=== PATIENT | male | born 1965 | race Caucasian/White ===

== ENCOUNTER 2016-09-19 17:19 | Inpatient (IN) | payer OTHER ==
[2016-09-19 17:26] VITALS: BMI 29.2
--- NOTE | 2016-09-19 17:39 | HP ---
COWS - Scale Resting Pulse: 0= [place] 80 or Below Sweatin=Flushed/Facial Moisture Restless Observation: 1= Difficult to Sit Still Pupil Size: 2= Moderately Dilated Bone or Joint Aches: 2= Severe Diffuse Aches Runny Nose/ Eye Tearin= Runny Nose/Eyes GI Upset > 30mins: 2= Nausea/Diarrhea Tremor Observation: 2= Slight Tremor Visible Yawning Observation: 1= 1-2x During Session Anxiety or Irritability: 2=Irritable/Anxious Goose Flesh Skin: 3=Piloerection COWS Score: 19 CIWA Score - CIWA Score Nausea/Vomitin-Mild Nausea/No Vomiting Muscle Tremors: 4-Moderate,w/Arms Extend Anxiety: 4-Mod. Anxious/Guarded Agitation: 4-Moderately Restless Paroxysmal Sweats: 3 Orientation: 0-Oriented Tacttile Disturbances: 1-Very Mild Itch/Numbness Auditory Disturbances: 0-None Visual Disturbances: 0-None Headache: 0-None Present CIWA-Ar Total Score: 17 Admission ROS S - HPI Chief Complaint: Withdrawal sx. Allergies/Adverse Reactions: Allergies Allergy/AdvReac Type Severity Reaction Status Date / Time No Known Allergies Allergy Verified 09/19/16 17:32 History of Present Illness: 51 y/o man with a long hx. of heroin,alcohol & xanax dependence is admitted for detox. pt. has been in previous detox,he claims almost 10yrs sobriety from 1985 to 1995. Exam Limitations: No Limitations - Ebola screening Have you traveled outside of the country in the last 21 days: No Have you had contact with anyone from an Ebola affected area: No Have you been sick,other than usual withdrawal symptoms: No Do you have a fever: No - Review of Systems Constitutional: Diaphoresis EENT: reports: Nose Congestion Respiratory: reports: No Symptoms reported Cardiac: reports: No Symptoms Reported GI: reports: Diarrhea, Nausea : reports: No Symptoms Reported Musculoskeletal: reports: Joint Pain, Muscle Pain Integumentary: reports: Sweating Neuro: reports: Tingling, Tremors Endocrine: reports: No Symptoms Reported Hematology: reports: No Symptoms Reported Psychiatric: reports: No Sypmtoms Reported Other Systems: Reviewed and Negative Patient History - Patient Medical History Hx Anemia: No Hx Asthma: No Hx Chronic Obstructive Pulmonary Disease (COPD): No Hx Cancer: No Hx Cardiac Disorders: No Hx Congestive Heart Failure: No Hx Hypertension: No Hx Hypercholesterolemia: No Hx Pacemaker: No HX Cerebrovascular Accident: No Hx Seizures: No Hx Dementia: No Hx Diabetes: No Hx Gastrointestinal Disorders: No Hx Liver Disease: Yes Hx Genitourinary Disorders: No Hx Sexually Transmitted Disorders: No Hx Renal Disease (ESRD): No Hx Thyroid Disease: No Hx Human Immunodeficiency Virus (HIV): No Hx Hepatitis C: Yes (needs treatment) Hx Depression: No Hx Suicide Attempt: No Hx Bipolar Disorder: No Hx Schizophrenia: No - Patient Surgical History Past Surgical History: No - PPD History Previous Implant?: Yes Documented Results: Negative w/o proof Implanted On Prior [facility] Admission?: No PPD to be Administered?: Yes - Smoking Cessation Smoking history: Current every day smoker Aproximately how many cigarettes per day: 20 Hx Chewing Tobacco Use: No Initiated information on smoking cessation: Yes 'Breaking Loose' booklet given: 09/19/16 - Substance & Tx. History Hx Alcohol Use: Yes Hx Substance Use: Yes Substance Use Type: Alcohol, Heroin, Tranquilizers Hx Substance Use Treatment: Yes (detox) - Substances Abused Alcohol Route: Oral Frequency: Daily Amount used: Beer 2(6pack) Age of first use: 13 Date of Last Use: 09/19/16 Alprazolam (Xanax) Route: Oral Frequency: Daily Amount used: 4mg Age of first use: 40 Date of Last Use: 09/18/16 Heroin Route: Injection Frequency: Daily Amount used: 10 bags Age of first use: 31 Date of Last Use: 09/19/16 Family Disease History - Family Disease History Family History: Unable to Obtain (pt. was mostly in foster homes) Admission Physical Exam S - Vital Signs Vital Signs: Vital Signs - 24 hr 09/19/16 17:21 Temperature 97.1 F L Pulse Rate 60 Respiratory 18 Rate Blood Pressure 122/71 - Physical General Appearance: Yes: Tremorous, Irritable, Sweating, Anxious HEENTM: Yes: Nasal Congestion, Rhinorrhea Respiratory: Yes: Chest Non-Tender, Lungs Clear, Normal Breath Sounds Neck: Yes: Supple Breast: Yes: Breast Exam Deferred Cardiology: Yes: Regular Rhythm, Regular Rate, S1, S2 Abdominal: Yes: Normal Bowel Sounds, Non Tender, Soft Genitourinary: Yes: Within Normal Limits Back: Yes: Within Normal Limits Musculoskeletal: Yes: Within Normal Limits Extremities: Yes: Tremors Neurological: Yes: Fully Oriented, Alert Integumentary: Yes: Diaphoresis Lymphatic: Yes: Within Normal Limits - Diagnostic (1) Alcohol dependence with uncomplicated withdrawal Current Visit: Yes Status: Acute (2) Opioid dependence with withdrawal Current Visit: Yes Status: Acute (3) Sedative, hypnotic or anxiolytic dependence with withdrawal, uncomplicated Current Visit: Yes Status: Acute Cleared for Admission [facility] - Detox or Rehab [facility] Level of Care: Medically Managed Detox Regimen/Protocol: Methadone/Librium [facility] Breath Alcohol Content Breath Alcohol Content: 0 Urine Drug Screen - Results Drug Screen Negative: No Urine Drug Screen Results: KIMMY-Cocaine, OPI-Opiates
[2016-09-19] MEDS ORDERED: guaiFENesin/D-METHORPHAN HB 10 ML UNIT-DOSE CUPS PO PRN (17:54)
[2016-09-19] MEDS ORDERED: chlordiazePOXIDE HCL 25 MG CAPSULE PO PRN (17:54)
[2016-09-19] MEDS ORDERED: P-EPHED 60MG/TRIPROLIDI 2.5MG TABLET PO PRN (17:54)
[2016-09-19] MEDS ORDERED: IBUPROFEN 400 MG TABLET (FP) PO PRN (17:54)
[2016-09-19] MEDS ORDERED: chlordiazePOXIDE HCL 25 MG CAPSULE PO ONE (17:54)
[2016-09-19] MEDS ORDERED: MENTHOL/PHENOL 1 EACH UD MM PRN (17:54)
[2016-09-19] MEDS ORDERED: LOPERAMIDE HCL 2 MG CAPSULE PO PRN (17:54)
[2016-09-19] MEDS ORDERED: MAGNESIUM CITRATE 300 ML BOTTLE PO PRN (17:54)
[2016-09-19] MEDS ORDERED: hydrOXYzine PAMOATE 50 MG CAPSULE (FP) PO PRN (17:54)
[2016-09-19] MEDS ORDERED: METHADONE HCL 10 MG TABLET (FOR DETOX USE ONLY) PO ONE ×2 (17:54→23:00)
[2016-09-19] MEDS ORDERED: MAGNESIUM HYDROX 2400MG/30ML ORAL SUSPENSION 30 ML CUP PO PRN (17:54)
[2016-09-19] MEDS ORDERED: NICOTINE POLACRILEX 2 MG GUM BC PRN (17:54)
[2016-09-19] MEDS ORDERED: MAG HYDROX/AL HYDROX/SIMETH 30 ML UNIT-DOSE CUP PO PRN (17:54)
[2016-09-19] MEDS: NICOTINE 21 MG/24 HOURS TOPICAL PATCH TD SCH (19:37)
[2016-09-19] MEDS: chlordiazePOXIDE HCL 25 MG CAPSULE PO SCH (23:03)
[2016-09-19] MEDS: THIAMINE HCL 100 MG TABLET (FP) PO SCH (23:03)
[2016-09-20] MEDS: chlordiazePOXIDE HCL 25 MG CAPSULE PO SCH ×4 (05:44→22:55)
[2016-09-20] MEDS ORDERED: METHADONE HCL 10 MG TABLET (FOR DETOX USE ONLY) PO SCH (10:00)
[2016-09-20] MEDS: PRENATAL VITAMINS W/ FOLIC ACID TABLET (FP) PO SCH (10:19)
[2016-09-20] MEDS: NICOTINE 21 MG/24 HOURS TOPICAL PATCH TD SCH (10:19)
[2016-09-20 11:22] LABS: ALBUMIN 3.1 g/dl (3.4-5.0); ANION GAP 5 (8-16); CALCIUM 8.2 mg/dL (8.5-10.1); CO2 32 mmol/L (21-32); GLUCOSE,RANDOM 103 mg/dL (74-106)
--- NOTE | 2016-09-20 11:26 | PN ---
[facility] CIWA - CIWA Score Nausea/Vomitin Muscle Tremors: 3 Anxiety: 3 Agitation: 2 Paroxysmal Sweats: 1-Minimal Palms Moist Orientation: 0-Oriented Tacttile Disturbances: 1-Very Mild Itch/Numbness Auditory Disturbances: 1-Very Mild Visual Disturbances: 1-Very Mild Sensitivity Headache: 2-Mild CIWA-Ar Total Score: 17 [facility] COWS - Scale Resting Pulse: 0= [place] 80 or Below Sweatin= Chills/Flushing Restless Observation: 3= Extraneous Movement Pupil Size: 1= Pupils >than Normal Bone or Joint Aches: 2= Severe Diffuse Aches Runny Nose/ Eye Tearin= Runny Nose/Eyes GI Upset > 30mins: 3= Vomiting/Diarrhea Tremor Observation of Outstretched Hands: 2= Slight Tremor Visible Yawning Observation: 1= 1-2x During Session Anxiety or Irritability: 2=Irritable/Anxious Goose Flesh Skin: 0=Smooth Skin COWS Score: 17 [facility] Progress Note (SOAP) Subjective: ALERT,IRRITABLE,ANXIOUS,INTERRUPTED SLEEP,TREMOR,PAIN IN THE BODY AND BACK Objective: 09/20/16 11:23 Vital Signs Temperature 97.9 F 09/20/16 10:00 Pulse Rate 48 L 09/20/16 10:00 Respiratory Rate 18 09/20/16 10:00 Blood Pressure 132/73 09/20/16 10:00 O2 Sat by Pulse Oximetry (%) EKG SINUS BARDYCARDIA 60/MIN NO CHEST PAIN,NO SOB,NO DIZZINESS LABS PENDING Assessment: 09/20/16 11:26 WITHDRAWAL SYMPTOM Plan: CONTINUE DETOX
[2016-09-20 11:28] LABS: ALK PHOS 58 U/L (45-117); BILIRUBIN,TOTAL 0.5 mg/dL (0.2-1.0); CREATININE 0.8 mg/dL (0.7-1.3); SGOT/AST 30 U/L (15-37); SGPT/ALT 26 U/L (12-78); TOT PROT 6.2 g/dl (6.4-8.2)
[2016-09-20 11:35] LABS: URINE APPEARANCE CLEAR; URINE BILIRUBIN NEGATIVE (NEGATIVE); URINE BLOOD NEGATIVE (NEGATIVE); URINE COLOR DKYELLOW; URINE GLUCOSE (UA) NEGATIVE (NEGATIVE); URINE KETONE NEGATIVE (NEGATIVE); URINE LEUK ESTERASE NEGATIVE (NEGATIVE); URINE NITRITE NEGATIVE (NEGATIVE); URINE PROTEIN NEGATIVE (NEGATIVE); URINE UROBILINOGEN 4.0 E.U/dl E.U./dl (0.2-1.0)
[2016-09-20 11:40] LABS: MCH 30.2 pg (25.7-33.7); MCHC 33.6 g/dl (32.0-35.9); MEAN CELL VOLUME 89.7 fl (80-96); MEAN PLT VOLUME 8.3 fl (7.5-11.1); PLATELET COUNT 159 K/MM3 (134-434); RDW 13.3 % (11.9-15.9); WHITE BLOOD COUNT 5.3 K/mm3 (4.0-10.0)
--- NOTE | 2016-09-20 12:32 | EKG ---
Test Reason : Blood Pressure : / mmHG Vent. Rate : 055 BPM Atrial Rate : 055 BPM P-R Int : 128 ms QRS Dur : 098 ms QT Int : 438 ms P-R-T Axes : 073 073 -13 degrees QTc Int : 419 ms SINUS BRADYCARDIA ABNORMAL ECG NO PREVIOUS ECGS AVAILABLE Confirmed by DESIREE JIMENEZ MD ([id number]) on 09/20/2016 12:32:29 PM Referred By: Confirmed By:DESIREE JIMENEZ MD
[2016-09-20] MEDS: THIAMINE HCL 100 MG TABLET (FP) PO SCH (22:54)
[2016-09-21] MEDS: chlordiazePOXIDE HCL 25 MG CAPSULE PO SCH ×3 (05:41→17:29)
[2016-09-21] MEDS: NICOTINE 21 MG/24 HOURS TOPICAL PATCH TD SCH (10:09)
[2016-09-21] MEDS: PRENATAL VITAMINS W/ FOLIC ACID TABLET (FP) PO SCH (10:10)
[2016-09-21] MEDS: METHADONE HCL 5 MG TABLET (FOR DETOX USE ONLY) PO SCH (10:10)
--- NOTE | 2016-09-21 10:22 | PN ---
[facility] CIWA - CIWA Score Nausea/Vomitin Muscle Tremors: 3 Anxiety: 3 Agitation: 3 Paroxysmal Sweats: 3 Orientation: 0-Oriented Tacttile Disturbances: 2-Mild Itch/Numbness/Burn Auditory Disturbances: 0-None Visual Disturbances: 0-None Headache: 0-None Present CIWA-Ar Total Score: 16 [facility] COWS - Scale Resting Pulse: 0= [place] 80 or Below Sweatin= Chills/Flushing Restless Observation: 1= Difficult to Sit Still Pupil Size: 1= Pupils >than Normal Bone or Joint Aches: 1= Mild Discomfort Runny Nose/ Eye Tearin= Nasal Congestion GI Upset > 30mins: 1= Stomach Cramp Tremor Observation of Outstretched Hands: 1= Tremor [place], Not Seen Yawning Observation: 1= 1-2x During Session Anxiety or Irritability: 2=Irritable/Anxious Goose Flesh Skin: 0=Smooth Skin COWS Score: 10 S Progress Note (SOAP) Subjective: INTERRUPTED SLEEP, SWEATS, SHAKES Objective: 09/21/16 10:22 Vital Signs Temperature 97.9 F 09/21/16 09:49 Pulse Rate 48 L 09/21/16 09:49 Respiratory Rate 16 09/21/16 09:49 Blood Pressure 115/75 09/21/16 09:49 O2 Sat by Pulse Oximetry (%) Laboratory Tests 09/20/16 09/20/16 09/20/16 08:00 08:00 08:00 WBC 5.3 RBC 4.34 Hgb 13.1 Hct 38.9 MCV 89.7 MCHC 33.6 RDW 13.3 Plt Count 159 MPV 8.3 Sodium 139 Potassium 3.9 Chloride 102 Carbon Dioxide 32 Anion Gap 5 L BUN 18 Creatinine 0.8 Creat Clearance w eGFR > 60 Random Glucose 103 Calcium 8.2 L Total Bilirubin 0.5 AST 30 ALT 26 Alkaline Phosphatase 58 Total Protein 6.2 L Albumin 3.1 L Urine Color Urine Appearance Urine pH Ur Specific [place] Urine Protein Urine Glucose (UA) Urine Ketones Urine Blood Urine Nitrite Urine Bilirubin Urine Urobilinogen Ur Leukocyte Esterase RPR Titer Nonreactive 09/20/16 08:00 WBC RBC Hgb Hct MCV MCHC RDW Plt Count MPV Sodium Potassium Chloride Carbon Dioxide Anion Gap BUN Creatinine Creat Clearance w eGFR Random Glucose Calcium Total Bilirubin AST ALT Alkaline Phosphatase Total Protein Albumin Urine Color Dkyellow Urine Appearance Clear Urine pH 6.0 Ur Specific [place] 1.031 Urine Protein Negative Urine Glucose (UA) Negative Urine Ketones Negative Urine Blood Negative Urine Nitrite Negative Urine Bilirubin Negative Urine Urobilinogen 4.0 e.u/dl Ur Leukocyte Esterase Negative RPR Titer 09/21/16 11:39 PT AOX3 IN NAD LYING IN BED Assessment: 09/21/16 10:22 WITHDRAWAL SX'S 09/21/16 11:40 Plan: CONT. DETOX INCREASE FLUIDS
[2016-09-21] MEDS: THIAMINE HCL 100 MG TABLET (FP) PO SCH (22:55)
[2016-09-21] MEDS: chlordiazePOXIDE 5 MG CAPSULE PO SCH (23:02)
[2016-09-21] MEDS: diphenhydrAMINE HCL 50 MG CAPSULE PO PRN (23:03)
[2016-09-22] MEDS: chlordiazePOXIDE 5 MG CAPSULE PO SCH ×3 (05:20→17:36)
[2016-09-22] MEDS: METHADONE HCL 5 MG TABLET (FOR DETOX USE ONLY) PO SCH (11:27)
[2016-09-22] MEDS: PRENATAL VITAMINS W/ FOLIC ACID TABLET (FP) PO SCH (11:27)
[2016-09-22] MEDS: NICOTINE 21 MG/24 HOURS TOPICAL PATCH TD SCH (11:27)
--- NOTE | 2016-09-22 11:52 | PN ---
[facility] Progress Note (SOAP) Subjective: anxiety sweats shakes interrupted sleep Objective: 09/22/16 11:51 Vital Signs Temperature 97.3 F L 09/22/16 10:13 Pulse Rate 52 L 09/22/16 10:13 Respiratory Rate 18 09/22/16 10:13 Blood Pressure 122/69 09/22/16 10:13 O2 Sat by Pulse Oximetry (%) Laboratory Tests 09/20/16 09/20/16 09/20/16 08:00 08:00 08:00 WBC 5.3 RBC 4.34 Hgb 13.1 Hct 38.9 MCV 89.7 MCHC 33.6 RDW 13.3 Plt Count 159 MPV 8.3 Sodium 139 Potassium 3.9 Chloride 102 Carbon Dioxide 32 Anion Gap 5 L BUN 18 Creatinine 0.8 Creat Clearance w eGFR > 60 Random Glucose 103 Calcium 8.2 L Total Bilirubin 0.5 AST 30 ALT 26 Alkaline Phosphatase 58 Total Protein 6.2 L Albumin 3.1 L Urine Color Urine Appearance Urine pH Ur Specific [place] Urine Protein Urine Glucose (UA) Urine Ketones Urine Blood Urine Nitrite Urine Bilirubin Urine Urobilinogen Ur Leukocyte Esterase RPR Titer Nonreactive 09/20/16 08:00 WBC RBC Hgb Hct MCV MCHC RDW Plt Count MPV Sodium Potassium Chloride Carbon Dioxide Anion Gap BUN Creatinine Creat Clearance w eGFR Random Glucose Calcium Total Bilirubin AST ALT Alkaline Phosphatase Total Protein Albumin Urine Color Dkyellow Urine Appearance Clear Urine pH 6.0 Ur Specific [place] 1.031 Urine Protein Negative Urine Glucose (UA) Negative Urine Ketones Negative Urine Blood Negative Urine Nitrite Negative Urine Bilirubin Negative Urine Urobilinogen 4.0 e.u/dl Ur Leukocyte Esterase Negative RPR Titer awake/alert ambulating no acute distress Assessment: 09/22/16 11:52 withdrawal sx Plan: continue detox increase fluids
[2016-09-22] MEDS ORDERED: AMMONIUM LACTATE 12% LOTION 225 GM BOTTLE TP PRN (13:19)
[2016-09-22] MEDS: BACITRACIN 0.9 GM PACKET TP SCH ×2 (14:50→22:55)
[2016-09-22] MEDS: THIAMINE HCL 100 MG TABLET (FP) PO SCH (22:55)
[2016-09-22] MEDS: chlordiazePOXIDE HCL 10 MG CAPSULE PO SCH (23:57)
[2016-09-23] MEDS: chlordiazePOXIDE HCL 10 MG CAPSULE PO SCH ×3 (06:12→17:53)
[2016-09-23] MEDS ORDERED: METHADONE HCL 10 MG TABLET (FOR DETOX USE ONLY) PO SCH (10:00)
[2016-09-23] MEDS: BACITRACIN 0.9 GM PACKET TP SCH ×2 (10:34→22:57)
[2016-09-23] MEDS: PRENATAL VITAMINS W/ FOLIC ACID TABLET (FP) PO SCH (10:34)
[2016-09-23] MEDS: NICOTINE 21 MG/24 HOURS TOPICAL PATCH TD SCH (10:35)
[2016-09-23] MEDS ORDERED: IBUPROFEN 400 MG TABLET (FP) PO PRN (12:11)
--- NOTE | 2016-09-23 12:14 | PN ---
[facility] Progress Note (SOAP) Subjective: interrupted sleep, feet hurt Objective: 09/23/16 12:12 Vital Signs Temperature 97.9 F 09/23/16 10:07 Pulse Rate 59 L 09/23/16 10:07 Respiratory Rate 18 09/23/16 10:07 Blood Pressure 124/79 09/23/16 10:07 O2 Sat by Pulse Oximetry (%) Laboratory Tests 09/20/16 09/20/16 09/20/16 08:00 08:00 08:00 WBC 5.3 RBC 4.34 Hgb 13.1 Hct 38.9 MCV 89.7 MCHC 33.6 RDW 13.3 Plt Count 159 MPV 8.3 Sodium 139 Potassium 3.9 Chloride 102 Carbon Dioxide 32 Anion Gap 5 L BUN 18 Creatinine 0.8 Creat Clearance w eGFR > 60 Random Glucose 103 Calcium 8.2 L Total Bilirubin 0.5 AST 30 ALT 26 Alkaline Phosphatase 58 Total Protein 6.2 L Albumin 3.1 L Urine Color Urine Appearance Urine pH Ur Specific [place] Urine Protein Urine Glucose (UA) Urine Ketones Urine Blood Urine Nitrite Urine Bilirubin Urine Urobilinogen Ur Leukocyte Esterase RPR Titer Nonreactive 09/20/16 08:00 WBC RBC Hgb Hct MCV MCHC RDW Plt Count MPV Sodium Potassium Chloride Carbon Dioxide Anion Gap BUN Creatinine Creat Clearance w eGFR Random Glucose Calcium Total Bilirubin AST ALT Alkaline Phosphatase Total Protein Albumin Urine Color Dkyellow Urine Appearance Clear Urine pH 6.0 Ur Specific [place] 1.031 Urine Protein Negative Urine Glucose (UA) Negative Urine Ketones Negative Urine Blood Negative Urine Nitrite Negative Urine Bilirubin Negative Urine Urobilinogen 4.0 e.u/dl Ur Leukocyte Esterase Negative RPR Titer pt aox3 in nad ambulating feet , fissures Assessment: 09/23/16 12:13 withdrawal sx's foot pains Plan: cont. detox increase fluids bacitracin oint motrin 800mg tid may use own shoes d/c in am
[2016-09-23] MEDS: ACETAMINOPHEN 325 MG TABLET (FP) PO PRN ×2 (18:39→22:58)
[2016-09-23] MEDS: THIAMINE HCL 100 MG TABLET (FP) PO SCH (22:55)
[2016-09-23] MEDS: diphenhydrAMINE HCL 50 MG CAPSULE PO PRN (22:57)
[2016-09-24] MEDS ORDERED: METHADONE HCL 5 MG TABLET (FOR DETOX USE ONLY) PO SCH (06:00)
[2016-09-24 07:09] VITALS: BP 102/63; PULSE 54; TEMP 98.1
--- NOTE | 2016-09-24 09:02 | DS ---
[facility] Detox Discharge Summary Admission Date: 09/19/16 Discharge Date: 09/24/16 - History Present History: Alcohol Dependence, Opioid Dependence, Sedative Dependence - Physical Exam Results Vital Signs: Vital Signs Temperature 98.1 F 09/24/16 07:08 Pulse Rate 54 L 09/24/16 07:08 Respiratory Rate 16 09/24/16 07:08 Blood Pressure 102/63 09/24/16 07:08 O2 Sat by Pulse Oximetry (%) - Treatment Hospital Course: Detox Protocol Followed, Detoxed Safely, Responded well, Discharged Condition Good - Medication Discharge Medications: Ambulatory Orders NK [No Known Home Medication] 09/19/16 - Diagnosis (1) Alcohol dependence with uncomplicated withdrawal Current Visit: Yes Status: Chronic (2) Opioid dependence with withdrawal Current Visit: Yes Status: Chronic (3) Sedative, hypnotic or anxiolytic dependence with withdrawal, uncomplicated Current Visit: Yes Status: Chronic - AMA Did Patient Leave Against Medical Advice: No
== END 2016-09-24 09:05 | disposition home or self-care (01) | DRG 773 ==
LOC: YASAS 17:19 → Y6N 18:29
PROVIDERS: ADMIT Internal Medicine; ATTEND Internal Medicine Addiction Medicine
PROC: HZ2ZZZZ Detoxification Services for Substance Abuse Treatment (ICD-10-PCS; principal; 2016-09-24)
DX: F11.23 Opioid dependence with withdrawal (principal); F13.230 Sedative, hypnotic or anxiolytic dependence with withdrawal, uncomplicated; F10.230 Alcohol dependence with withdrawal, uncomplicated
CPT/HCPCS: 36415; 71010-TC; 80053; 81003; 85027; 86593; 93005; 93010

== ENCOUNTER 2016-11-10 14:33 | Inpatient (IN) | payer OTHER ==
[2016-11-10 15:48] VITALS: BMI 30.9
--- NOTE | 2016-11-10 16:36 | HP ---
COWS - Scale Resting Pulse: 0= [place] 80 or Below Sweatin= Chills/Flushing Restless Observation: 1= Difficult to Sit Still Pupil Size: 1= Pupils >than Normal Bone or Joint Aches: 2= Severe Diffuse Aches Runny Nose/ Eye Tearin= Nasal Congestion GI Upset > 30mins: 1= Stomach Cramp Tremor Observation: 1= Tremor [place], Not Seen Yawning Observation: 0= None Anxiety or Irritability: 2=Irritable/Anxious Goose Flesh Skin: 0=Smooth Skin COWS Score: 10 CIWA Score - CIWA Score Nausea/Vomitin Muscle Tremors: 2 Anxiety: 2 Agitation: 2 Paroxysmal Sweats: 4-Forehead w/Sweat Beads Orientation: 0-Oriented Tacttile Disturbances: 2-Mild Itch/Numbness/Burn Auditory Disturbances: 0-None Visual Disturbances: 0-None Headache: 0-None Present CIWA-Ar Total Score: 15 Admission ROS [facility] - HPI Chief Complaint: I need to stop using drugs ,I need help. Allergies/Adverse Reactions: Allergies Allergy/AdvReac Type Severity Reaction Status Date / Time No Known Allergies Allergy Verified 11/10/16 16:24 History of Present Illness: 51 y/o m pt with a h/o heroin dep, xanax dep and st methadone seeking detox. Exam Limitations: No Limitations - Ebola screening Have you traveled outside of the country in the last 21 days: No Have you had contact with anyone from an Ebola affected area: No Have you been sick,other than usual withdrawal symptoms: No Do you have a fever: No - Review of Systems Constitutional: Malaise, Night Sweats, Changes in sleep EENT: reports: Blurred Vision, Dental Problems Respiratory: reports: No Symptoms reported Cardiac: reports: No Symptoms Reported GI: reports: Nausea, Abdominal cramping : reports: Frequency Musculoskeletal: reports: Muscle Pain Integumentary: reports: No Symptoms Reported Neuro: reports: No Symptoms reported Endocrine: reports: No Symptoms Reported Hematology: reports: No Symptoms Reported Psychiatric: reports: No Sypmtoms Reported Other Systems: Reviewed and Negative Patient History - Patient Medical History Hx Anemia: No Hx Asthma: No Hx Chronic Obstructive Pulmonary Disease (COPD): No Hx Cancer: No Hx Cardiac Disorders: No Hx Congestive Heart Failure: No Hx Hypertension: No Hx Hypercholesterolemia: No Hx Pacemaker: No HX Cerebrovascular Accident: No Hx Seizures: No Hx Dementia: No Hx Diabetes: No Hx Gastrointestinal Disorders: No Hx Liver Disease: Yes Hx Genitourinary Disorders: No Hx Sexually Transmitted Disorders: No Hx Renal Disease (ESRD): No Hx Thyroid Disease: No Hx Human Immunodeficiency Virus (HIV): No Hx Hepatitis C: Yes (needs treatment) Hx Depression: No Hx Suicide Attempt: No Hx Bipolar Disorder: No Hx Schizophrenia: No - Patient Surgical History Past Surgical History: Yes Hx Neurologic Surgery: No Hx Cataract Extraction: No Hx Cardiac Surgery: No Hx Lung Surgery: No Hx Breast Surgery: No Hx Breast Biopsy: No Hx Abdominal Surgery: No Hx Appendectomy: No Hx Cholecystectomy: No Hx Genitourinary Surgery: No Hx Section: No Hx Orthopedic Surgery: No Other Surgical History: Bilateral inguinal hernia repairs at age 5 yrs old. Anesthesia Reaction: No - PPD History Previous Implant?: Yes Documented Results: Positive w/proof Implanted On Prior [facility] Admission?: Yes Date: 09/21/16 Results: 9 mm - Reproductive History Patient is a Female of Child Bearing Age (11 -55 yrs old): No - Smoking Cessation Smoking history: Current every day smoker Have you smoked in the past 12 months: Yes Aproximately how many cigarettes per day: 20 Hx Chewing Tobacco Use: No Initiated information on smoking cessation: Yes 'Breaking Loose' booklet given: 11/10/16 - Substance & Tx. History Hx Alcohol Use: No Hx Substance Use: Yes Substance Use Type: Heroin, Tranquilizers Hx Substance Use Treatment: Yes - Substances Abused Heroin Route: Injection Frequency: Daily Amount used: 10 BAGS Age of first use: 25 Date of Last Use: 11/10/16 Alprazolam (Xanax) Route: Oral Frequency: Daily Amount used: 2-4mg Age of first use: 25 Date of Last Use: 11/09/16 Family Disease History - Family Disease History Family History: Unable to Obtain Admission Physical Exam [facility] - Vital Signs Vital Signs: Vital Signs - 24 hr 11/10/16 15:46 Temperature 95.7 F L Pulse Rate 57 L Respiratory 18 Rate Blood Pressure 126/71 51 y/o m pt aox3 wn/wn i nad cooperative with exam. - Physical General Appearance: Yes: Appropriately Dressed, Sweating, Anxious HEENTM: Yes: EOMI, Hearing grossly Normal, Normal Voice, CRISTOFER Respiratory: Yes: Chest Non-Tender, Lungs Clear, Normal Breath Sounds, No Respiratory Distress Neck: Yes: Supple Breast: Yes: Within Normal Limits Cardiology: Yes: Regular Rhythm, Regular Rate, S1, S2 Abdominal: Yes: Non Tender, Flat, Soft, Increased Bowel Sounds Genitourinary: Yes: Frequency Back: Yes: Decreased Range of Motion Extremities: Yes: Tremors Neurological: Yes: barrel rifler II-XII NML intact, Fully Oriented, Alert, Motor Strength 5/5, Normal Response Integumentary: Yes: Moist, Track Bowling (luz forearms) Lymphatic: Yes: Within Normal Limits - Diagnostic (1) Opioid dependence with withdrawal Current Visit: Yes Status: Chronic (2) Sedative, hypnotic or anxiolytic dependence with withdrawal, uncomplicated Current Visit: Yes Status: Chronic (3) Nicotine dependence Current Visit: Yes Status: Chronic Qualifiers: Nicotine product type: cigarettes Substance use status: uncomplicated Qualified Code(s): F17.210 - Nicotine dependence, cigarettes, uncomplicated Cleared for Admission [facility] - Detox or Rehab [facility] Level of Care: Medically Managed Detox Regimen/Protocol: Methadone/Valium [facility] Breath Alcohol Content Breath Alcohol Content: 0 Urine Drug Screen - Results Drug Screen Negative: No Urine Drug Screen Results: OPI-Opiates, BZO-Benzodiazepines, MTD-Methadone
[2016-11-10] MEDS ORDERED: hydrOXYzine PAMOATE 25 MG CAPSULE (FP) PO PRN (16:56)
[2016-11-10] MEDS ORDERED: MAG HYDROX/AL HYDROX/SIMETH 30 ML UNIT-DOSE CUP PO PRN (16:56)
[2016-11-10] MEDS ORDERED: guaiFENesin/D-METHORPHAN HB 10 ML UNIT-DOSE CUPS PO PRN (16:56)
[2016-11-10] MEDS ORDERED: MAGNESIUM CITRATE 300 ML BOTTLE PO PRN (16:56)
[2016-11-10] MEDS ORDERED: NICOTINE POLACRILEX 4 MG GUM BC PRN (16:56)
[2016-11-10] MEDS ORDERED: MAGNESIUM HYDROX 2400MG/30ML ORAL SUSPENSION 30 ML CUP PO PRN (16:56)
[2016-11-10] MEDS ORDERED: IBUPROFEN 400 MG TABLET (FP) PO PRN (16:56)
[2016-11-10] MEDS ORDERED: MENTHOL/PHENOL 1 EACH UD MM PRN (16:56)
[2016-11-10] MEDS ORDERED: LOPERAMIDE HCL 2 MG CAPSULE PO PRN (16:56)
[2016-11-10] MEDS ORDERED: ACETAMINOPHEN 325 MG TABLET (FP) PO PRN (16:56)
[2016-11-10] MEDS ORDERED: P-EPHED 60MG/TRIPROLIDI 2.5MG TABLET PO PRN (16:56)
[2016-11-10] MEDS ORDERED: METHADONE HCL 10 MG TABLET (FOR DETOX USE ONLY) PO ONE ×2 (17:45→23:00)
[2016-11-10] MEDS ORDERED: diazePAM 5 MG TABLET PO ONE (17:45)
[2016-11-10] MEDS: diazePAM 5 MG TABLET PO SCH (22:03)
[2016-11-10] MEDS: THIAMINE HCL 100 MG TABLET (FP) PO SCH (22:03)
[2016-11-10] MEDS: BACITRACIN 0.9 GM PACKET TP SCH (22:03)
[2016-11-10] MEDS: diphenhydrAMINE HCL 50 MG CAPSULE PO PRN (22:04)
[2016-11-11] MEDS: diazePAM 5 MG TABLET PO SCH ×3 (05:40→22:01)
[2016-11-11] MEDS ORDERED: METHADONE HCL 10 MG TABLET (FOR DETOX USE ONLY) PO SCH (10:00)
[2016-11-11] MEDS: PRENATAL VITAMINS W/ FOLIC ACID TABLET (FP) PO SCH (10:06)
[2016-11-11] MEDS: NICOTINE 21 MG/24 HOURS TOPICAL PATCH TD SCH (10:06)
[2016-11-11] MEDS: BACITRACIN 0.9 GM PACKET TP SCH ×2 (10:06→22:01)
[2016-11-11] MEDS: diazePAM 5 MG TABLET PO PRN ×2 (10:06→17:43)
--- NOTE | 2016-11-11 10:22 | PN ---
[facility] CIWA - CIWA Score Nausea/Vomitin-No Nausea/No Vomiting Muscle Tremors: 4-Moderate,w/Arms Extend Anxiety: 4-Mod. Anxious/Guarded Agitation: 4-Moderately Restless Paroxysmal Sweats: 1-Minimal Palms Moist Orientation: 0-Oriented Tacttile Disturbances: 3-Moderate Itch/Numb/Burn Auditory Disturbances: 0-None Visual Disturbances: 0-None Headache: 0-None Present CIWA-Ar Total Score: 16 [facility] COWS - Scale Resting Pulse: 0= [place] 80 or Below Sweatin= Chills/Flushing Restless Observation: 3= Extraneous Movement Pupil Size: 2= Moderately Dilated Bone or Joint Aches: 4=Acute Joint/Muscle Pain Runny Nose/ Eye Tearin= Nasal Congestion GI Upset > 30mins: 1= Stomach Cramp Tremor Observation of Outstretched Hands: 1= Tremor [place], Not Seen Yawning Observation: 1= 1-2x During Session Anxiety or Irritability: 1=Feels Anxious/Irritable Goose Flesh Skin: 0=Smooth Skin COWS Score: 15 [facility] Progress Note (SOAP) Subjective: ANXIETY,TREMORS,SWEATS,DIARRHEA,INTERMITTENT SLEEP. Objective: 11/11/16 10:22 Vital Signs Temperature 97.8 F 11/11/16 09:24 Pulse Rate 65 11/11/16 09:24 Respiratory Rate 18 11/11/16 09:24 Blood Pressure 116/78 11/11/16 09:24 O2 Sat by Pulse Oximetry (%) LAB RESULTS PENDING Assessment: 11/11/16 10:22 WITHDRAWAL SX Plan: CONTINUE DETOX
[2016-11-11 10:28] LABS: MCH 30.6 pg (25.7-33.7); MCHC 34.6 g/dl (32.0-35.9); MEAN CELL VOLUME 88.6 fl (80-96); MEAN PLT VOLUME 7.9 fl (7.5-11.1); PLATELET COUNT 179 K/MM3 (134-434)
[2016-11-11 10:44] LABS: ALBUMIN 3.4 g/dl (3.4-5.0); ALK PHOS 65 U/L (45-117); ANION GAP 11 (8-16); BILIRUBIN,TOTAL 0.4 mg/dL (0.2-1.0); CALCIUM 8.5 mg/dL (8.5-10.1); CO2 29 mmol/L (21-32); CREATININE 0.9 mg/dL (0.7-1.3); GLUCOSE,RANDOM 145 mg/dL (74-106); SGOT/AST 29 U/L (15-37); SGPT/ALT 32 U/L (12-78); TOT PROT 6.7 g/dl (6.4-8.2)
--- NOTE | 2016-11-11 11:02 | EKG ---
Test Reason : Blood Pressure : / mmHG Vent. Rate : 053 BPM Atrial Rate : 053 BPM P-R Int : 144 ms QRS Dur : 100 ms QT Int : 436 ms P-R-T Axes : 049 064 049 degrees QTc Int : 409 ms SINUS BRADYCARDIA OTHERWISE NORMAL ECG WHEN COMPARED WITH ECG OF 19-SEP-2016 18:55, ST NO LONGER DEPRESSED IN INFERIOR LEADS T WAVE INVERSION NO LONGER EVIDENT IN INFERIOR LEADS Confirmed by MARYANNE GENTILE, HODA ([id number]) on 11/11/2016 11:02:08 AM Referred By: Joshua Thao Confirmed By:HODA MADDEN MD
[2016-11-11 12:01] LABS: HIV 1 & 2 AB NEGATIVE; HIV 1 AGp24 NEGATIVE
[2016-11-11 16:26] LABS: URINE APPEARANCE CLEAR; URINE BILIRUBIN NEGATIVE (NEGATIVE); URINE BLOOD NEGATIVE (NEGATIVE); URINE COLOR YELLOW; URINE GLUCOSE (UA) NEGATIVE (NEGATIVE); URINE KETONE NEGATIVE (NEGATIVE); URINE LEUK ESTERASE NEGATIVE (NEGATIVE); URINE NITRITE NEGATIVE (NEGATIVE); URINE PROTEIN NEGATIVE (NEGATIVE); URINE UROBILINOGEN NEGATIVE E.U./dl (0.2-1.0)
[2016-11-11] MEDS: THIAMINE HCL 100 MG TABLET (FP) PO SCH (22:01)
[2016-11-11] MEDS: diphenhydrAMINE HCL 50 MG CAPSULE PO PRN (22:01)
[2016-11-12] MEDS: diazePAM 5 MG TABLET PO PRN ×4 (01:30→17:48)
--- NOTE | 2016-11-12 09:48 | PN ---
[facility] CIWA - CIWA Score Nausea/Vomitin-No Nausea/No Vomiting Muscle Tremors: 4-Moderate,w/Arms Extend Anxiety: 4-Mod. Anxious/Guarded Agitation: 4-Moderately Restless Paroxysmal Sweats: 1-Minimal Palms Moist Orientation: 0-Oriented Tacttile Disturbances: 3-Moderate Itch/Numb/Burn Auditory Disturbances: 0-None Visual Disturbances: 0-None Headache: 0-None Present CIWA-Ar Total Score: 16 S COWS - Scale Resting Pulse: 0= [place] 80 or Below Sweatin= Chills/Flushing Restless Observation: 3= Extraneous Movement Pupil Size: 0= Normal to Room Light Bone or Joint Aches: 4=Acute Joint/Muscle Pain Runny Nose/ Eye Tearin= Nasal Congestion GI Upset > 30mins: 1= Stomach Cramp Tremor Observation of Outstretched Hands: 1= Tremor Bee, Not Seen Yawning Observation: 2= >3x During Session Anxiety or Irritability: 2=Irritable/Anxious Goose Flesh Skin: 0=Smooth Skin COWS Score: 15 [facility] Progress Note (SOAP) Subjective: ANXIETY,SWEATS,INTERMITTENT SLEEP Objective: 11/12/16 09:48 Vital Signs Temperature 97.0 F L 11/12/16 09:30 Pulse Rate 78 11/12/16 09:30 Respiratory Rate 18 11/12/16 09:30 Blood Pressure 127/78 11/12/16 09:30 O2 Sat by Pulse Oximetry (%) Laboratory Last Values WBC 7.0 K/mm3 (4.0-10.0) D 11/11/16 07:30 RBC 4.55 M/mm3 (4.00-5.60) 11/11/16 07:30 Hgb 13.9 GM/dL (11.7-16.9) 11/11/16 07:30 Hct 40.3 % (35.4-49) 11/11/16 07:30 MCV 88.6 fl (80-96) 11/11/16 07:30 MCHC 34.6 g/dl (32.0-35.9) 11/11/16 07:30 RDW 14.0 % (11.9-15.9) 11/11/16 07:30 Plt Count 179 K/MM3 (134-434) 11/11/16 07:30 MPV 7.9 fl (7.5-11.1) 11/11/16 07:30 Sodium 138 mmol/L (136-145) 11/11/16 07:30 Potassium 3.9 mmol/L (3.5-5.1) 11/11/16 07:30 Chloride 98 mmol/L (98-107) 11/11/16 07:30 Carbon Dioxide 29 mmol/L (21-32) 11/11/16 07:30 Anion Gap 11 (8-16) 11/11/16 07:30 BUN 17 mg/dL (7-18) 11/11/16 07:30 Creatinine 0.9 mg/dL (0.7-1.3) 11/11/16 07:30 Creat Clearance w eGFR > 60 (>60) 11/11/16 07:30 Random Glucose 145 mg/dL (74-106) H D 11/11/16 07:30 Calcium 8.5 mg/dL (8.5-10.1) 11/11/16 07:30 Total Bilirubin 0.4 mg/dL (0.2-1.0) 11/11/16 07:30 AST 29 U/L (15-37) 11/11/16 07:30 ALT 32 U/L (12-78) D 11/11/16 07:30 Alkaline Phosphatase 65 U/L (45-117) 11/11/16 07:30 Total Protein 6.7 g/dl (6.4-8.2) 11/11/16 07:30 Albumin 3.4 g/dl (3.4-5.0) 11/11/16 07:30 Urine Color Yellow 11/11/16 13:40 Urine Appearance Clear 11/11/16 13:40 Urine pH 5.0 (5.0-8.0) 11/11/16 13:40 Ur Specific [place] 1.020 (1.001-1.035) 11/11/16 13:40 Urine Protein Negative (NEGATIVE) 11/11/16 13:40 Urine Glucose (UA) Negative (NEGATIVE) 11/11/16 13:40 Urine Ketones Negative (NEGATIVE) 11/11/16 13:40 Urine Blood Negative (NEGATIVE) 11/11/16 13:40 Urine Nitrite Negative (NEGATIVE) 11/11/16 13:40 Urine Bilirubin Negative (NEGATIVE) 11/11/16 13:40 Urine Urobilinogen Negative E.U./dl (0.2-1.0) 11/11/16 13:40 Ur Leukocyte Esterase Negative (NEGATIVE) 11/11/16 13:40 RPR Titer Nonreactive (NONREACTIVE) 11/11/16 07:30 HIV 1&2 Antibody Screen Negative 11/11/16 07:30 HIV P24 Antigen Negative 11/11/16 07:30 Assessment: 11/12/16 09:48 WITHDRAWAL SX Plan: CONTINUE DETOX
[2016-11-12] MEDS: PRENATAL VITAMINS W/ FOLIC ACID TABLET (FP) PO SCH (10:01)
[2016-11-12] MEDS: BACITRACIN 0.9 GM PACKET TP SCH ×2 (10:01→22:06)
[2016-11-12] MEDS: METHADONE HCL 5 MG TABLET (FOR DETOX USE ONLY) PO SCH (10:01)
[2016-11-12] MEDS: diazePAM 5 MG TABLET PO SCH ×2 (10:01→22:07)
[2016-11-12] MEDS: NICOTINE 21 MG/24 HOURS TOPICAL PATCH TD SCH (10:02)
[2016-11-12] MEDS: THIAMINE HCL 100 MG TABLET (FP) PO SCH (22:07)
[2016-11-12] MEDS: diphenhydrAMINE HCL 50 MG CAPSULE PO PRN (22:07)
[2016-11-13] MEDS: diazePAM 5 MG TABLET PO PRN ×2 (05:41→14:14)
[2016-11-13] MEDS: METHADONE HCL 5 MG TABLET (FOR DETOX USE ONLY) PO SCH (10:09)
[2016-11-13] MEDS: PRENATAL VITAMINS W/ FOLIC ACID TABLET (FP) PO SCH (10:09)
[2016-11-13] MEDS: BACITRACIN 0.9 GM PACKET TP SCH ×2 (10:09→22:04)
[2016-11-13] MEDS: NICOTINE 21 MG/24 HOURS TOPICAL PATCH TD SCH (10:09)
[2016-11-13] MEDS: diazePAM 5 MG TABLET PO SCH ×2 (10:09→22:04)
--- NOTE | 2016-11-13 12:51 | PN ---
[facility] Progress Note (SOAP) Subjective: Anxiety,tremors,sweating,interrupted sleep,restless Objective: 11/13/16 12:48 Vital Signs - 8 hr 11/13/16 11/13/16 06:35 10:37 Temperature 96.9 F L 97.3 F L Pulse Rate 54 L 63 Respiratory 18 18 Rate Blood Pressure 113/75 124/83 Laboratory Tests 11/11/16 11/11/16 11/11/16 07:30 07:30 07:30 WBC 7.0 D RBC 4.55 Hgb 13.9 Hct 40.3 MCV 88.6 MCHC 34.6 RDW 14.0 Plt Count 179 MPV 7.9 Sodium 138 Potassium 3.9 Chloride 98 Carbon Dioxide 29 Anion Gap 11 BUN 17 Creatinine 0.9 Creat Clearance w eGFR > 60 Random Glucose 145 H D Calcium 8.5 Total Bilirubin 0.4 AST 29 ALT 32 D Alkaline Phosphatase 65 Total Protein 6.7 Albumin 3.4 Urine Color Urine Appearance Urine pH Ur Specific [place] Urine Protein Urine Glucose (UA) Urine Ketones Urine Blood Urine Nitrite Urine Bilirubin Urine Urobilinogen Ur Leukocyte Esterase RPR Titer HIV 1&2 Antibody Screen Negative HIV P24 Antigen Negative 11/11/16 11/11/16 07:30 13:40 WBC RBC Hgb Hct MCV MCHC RDW Plt Count MPV Sodium Potassium Chloride Carbon Dioxide Anion Gap BUN Creatinine Creat Clearance w eGFR Random Glucose Calcium Total Bilirubin AST ALT Alkaline Phosphatase Total Protein Albumin Urine Color Yellow Urine Appearance Clear Urine pH 5.0 Ur Specific [place] 1.020 Urine Protein Negative Urine Glucose (UA) Negative Urine Ketones Negative Urine Blood Negative Urine Nitrite Negative Urine Bilirubin Negative Urine Urobilinogen Negative Ur Leukocyte Esterase Negative RPR Titer Nonreactive HIV 1&2 Antibody Screen HIV P24 Antigen labs noted Assessment: 11/13/16 12:48 Withdrawal sx. Plan: Continue detox
[2016-11-13] MEDS: THIAMINE HCL 100 MG TABLET (FP) PO SCH (22:04)
[2016-11-13] MEDS: diphenhydrAMINE HCL 50 MG CAPSULE PO PRN (22:04)
[2016-11-14] MEDS ORDERED: METHADONE HCL 10 MG TABLET (FOR DETOX USE ONLY) PO SCH (10:00)
[2016-11-14] MEDS ORDERED: diazePAM 5 MG TABLET PO SCH (10:00)
[2016-11-14 11:03] VITALS: BP 128/87; PULSE 65; TEMP 98.6
--- NOTE | 2016-11-14 17:21 | DS ---
[facility] Detox Discharge Summary Admission Date: 11/10/16 Discharge Date: 11/14/16 - History Present History: Opioid Dependence, Sedative Dependence Additional Comments: ADVISED PATIENT TO FOLLOW-UP WITH [facility] FOR GENERAL MEDICAL ASSESSMENT AND FOR ABNORMAL ADMISSION LAB VALUES. Pertinent Past History: Hep C. - Physical Exam Results Vital Signs: Vital Signs Temperature 98.6 F 11/14/16 11:01 Pulse Rate 65 11/14/16 11:01 Respiratory Rate 18 11/14/16 11:01 Blood Pressure 128/87 11/14/16 11:01 O2 Sat by Pulse Oximetry (%) Pertinent Admission Physical Exam Findings: WITHDRAWAL SYMPTOMS. Laboratory Last Values WBC 7.0 K/mm3 (4.0-10.0) D 11/11/16 07:30 RBC 4.55 M/mm3 (4.00-5.60) 11/11/16 07:30 Hgb 13.9 GM/dL (11.7-16.9) 11/11/16 07:30 Hct 40.3 % (35.4-49) 11/11/16 07:30 MCV 88.6 fl (80-96) 11/11/16 07:30 MCHC 34.6 g/dl (32.0-35.9) 11/11/16 07:30 RDW 14.0 % (11.9-15.9) 11/11/16 07:30 Plt Count 179 K/MM3 (134-434) 11/11/16 07:30 MPV 7.9 fl (7.5-11.1) 11/11/16 07:30 Sodium 138 mmol/L (136-145) 11/11/16 07:30 Potassium 3.9 mmol/L (3.5-5.1) 11/11/16 07:30 Chloride 98 mmol/L (98-107) 11/11/16 07:30 Carbon Dioxide 29 mmol/L (21-32) 11/11/16 07:30 Anion Gap 11 (8-16) 11/11/16 07:30 BUN 17 mg/dL (7-18) 11/11/16 07:30 Creatinine 0.9 mg/dL (0.7-1.3) 11/11/16 07:30 Creat Clearance w eGFR > 60 (>60) 11/11/16 07:30 Random Glucose 145 mg/dL (74-106) H D 11/11/16 07:30 Calcium 8.5 mg/dL (8.5-10.1) 11/11/16 07:30 Total Bilirubin 0.4 mg/dL (0.2-1.0) 11/11/16 07:30 AST 29 U/L (15-37) 11/11/16 07:30 ALT 32 U/L (12-78) D 11/11/16 07:30 Alkaline Phosphatase 65 U/L (45-117) 11/11/16 07:30 Total Protein 6.7 g/dl (6.4-8.2) 11/11/16 07:30 Albumin 3.4 g/dl (3.4-5.0) 11/11/16 07:30 Urine Color Yellow 11/11/16 13:40 Urine Appearance Clear 11/11/16 13:40 Urine pH 5.0 (5.0-8.0) 11/11/16 13:40 Ur Specific [place] 1.020 (1.001-1.035) 11/11/16 13:40 Urine Protein Negative (NEGATIVE) 11/11/16 13:40 Urine Glucose (UA) Negative (NEGATIVE) 11/11/16 13:40 Urine Ketones Negative (NEGATIVE) 11/11/16 13:40 Urine Blood Negative (NEGATIVE) 11/11/16 13:40 Urine Nitrite Negative (NEGATIVE) 11/11/16 13:40 Urine Bilirubin Negative (NEGATIVE) 11/11/16 13:40 Urine Urobilinogen Negative E.U./dl (0.2-1.0) 11/11/16 13:40 Ur Leukocyte Esterase Negative (NEGATIVE) 11/11/16 13:40 RPR Titer Nonreactive (NONREACTIVE) 11/11/16 07:30 HIV 1&2 Antibody Screen Negative 11/11/16 07:30 HIV P24 Antigen Negative 11/11/16 07:30 LABS NOTED. - Treatment Hospital Course: Detoxed Safely - Medication Discharge Medications: Ambulatory Orders NK [No Known Home Medication] 09/19/16 - Diagnosis (1) Nicotine dependence Status: Chronic Qualifiers: Nicotine product type: cigarettes Substance use status: uncomplicated Qualified Code(s): F17.210 - Nicotine dependence, cigarettes, uncomplicated (2) Opioid dependence with withdrawal Status: Acute (3) Sedative, hypnotic or anxiolytic dependence with withdrawal, uncomplicated Status: Acute - AMA Did Patient Leave Against Medical Advice: Yes (PATIENT DID NOT WANT TO REMIAIN ON UNIT TO COMPLETE DETOX REGIMEN.)
[2016-11-15] MEDS ORDERED: METHADONE HCL 5 MG TABLET (FOR DETOX USE ONLY) PO SCH (06:00)
== END 2016-11-14 09:16 | disposition left against medical advice (07) | DRG 770 ==
LOC: YASAS 14:33 → Y3N 17:16
PROVIDERS: ADMIT Internal Medicine; ATTEND Internal Medicine
PROC: HZ2ZZZZ Detoxification Services for Substance Abuse Treatment (ICD-10-PCS; principal; 2016-11-14)
DX: F11.23 Opioid dependence with withdrawal (principal); F13.230 Sedative, hypnotic or anxiolytic dependence with withdrawal, uncomplicated; F17.210 Nicotine dependence, cigarettes, uncomplicated; B18.2 Chronic viral hepatitis C
CPT/HCPCS: 36415; 80053; 81003; 85027; 86593; 87389; 93005; 93010

== ENCOUNTER 2016-12-23 08:38 | Inpatient (IN) | payer OTHER ==
[2016-12-23 10:29] VITALS: BMI 28.5
--- NOTE | 2016-12-23 12:10 | HP ---
COWS - Scale Resting Pulse: 0= [place] 80 or Below Sweatin=Flushed/Facial Moisture Restless Observation: 1= Difficult to Sit Still Pupil Size: 0= Normal to Room Light Bone or Joint Aches: 2= Severe Diffuse Aches Runny Nose/ Eye Tearin= Runny Nose/Eyes GI Upset > 30mins: 2= Nausea/Diarrhea Tremor Observation: 2= Slight Tremor Visible Yawning Observation: 2= >3x During Session Anxiety or Irritability: 2=Irritable/Anxious Goose Flesh Skin: 0=Smooth Skin COWS Score: 15 CIWA Score - CIWA Score Nausea/Vomitin-Mild Nausea/No Vomiting Muscle Tremors: 4-Moderate,w/Arms Extend Anxiety: 3 Agitation: 4-Moderately Restless Paroxysmal Sweats: 3 Orientation: 0-Oriented Tacttile Disturbances: 0-None Auditory Disturbances: 0-None Visual Disturbances: 0-None Headache: 0-None Present CIWA-Ar Total Score: 15 Admission ROS S - HPI Chief Complaint: I am here for detox. Allergies/Adverse Reactions: Allergies Allergy/AdvReac Type Severity Reaction Status Date / Time No Known Allergies Allergy Verified 12/23/16 10:44 History of Present Illness: pt is a 51yr old male with a history of alcohol, heroin, xanax dependence seeking detox for treatment. last detox was at [facility] a little over a month ago. Exam Limitations: No Limitations - Ebola screening Have you traveled outside of the country in the last 21 days: No Have you had contact with anyone from an Ebola affected area: No Have you been sick,other than usual withdrawal symptoms: No - Review of Systems Constitutional: Chills, Diaphoresis, Loss of Appetite, Night Sweats, Changes in sleep EENT: reports: Tearing, Nose Congestion Respiratory: reports: No Symptoms reported Cardiac: reports: No Symptoms Reported GI: reports: Diarrhea, Poor Appetite, Poor Fluid Intake : reports: No Symptoms Reported Musculoskeletal: reports: Back Pain Integumentary: reports: Flushing, Sweating Neuro: reports: Tingling, Tremors Endocrine: reports: Excessive Sweating, Flushing, Intolerance to Cold, Intolerance to Heat Hematology: reports: No Symptoms Reported Psychiatric: reports: Judgement Intact, Mood/Affect Appropiate, Orientated x3, Agitated, Anxious Other Systems: Reviewed and Negative Patient History - Patient Medical History Hx Anemia: No Hx Asthma: No Hx Chronic Obstructive Pulmonary Disease (COPD): No Hx Cancer: No Hx Cardiac Disorders: No Hx Congestive Heart Failure: No Hx Hypertension: No Hx Hypercholesterolemia: No Hx Pacemaker: No HX Cerebrovascular Accident: No Hx Seizures: No Hx Dementia: No Hx Diabetes: No Hx Gastrointestinal Disorders: No Hx Liver Disease: Yes Hx Genitourinary Disorders: No Hx Sexually Transmitted Disorders: No Hx Renal Disease (ESRD): No Hx Thyroid Disease: No Hx Human Immunodeficiency Virus (HIV): No (negative) Hx Hepatitis C: Yes (needs treatment) Hx Depression: No Hx Suicide Attempt: No (denies) Hx Bipolar Disorder: No Hx Schizophrenia: No - Patient Surgical History Past Surgical History: Yes Hx Neurologic Surgery: No Hx Cataract Extraction: No Hx Cardiac Surgery: No Hx Lung Surgery: No Hx Breast Surgery: No Hx Breast Biopsy: No Hx Abdominal Surgery: No Hx Appendectomy: No Hx Cholecystectomy: No Hx Genitourinary Surgery: No Hx Section: No Hx Orthopedic Surgery: No Other Surgical History: Bilateral inguinal hernia repairs at age 5 yrs old. Anesthesia Reaction: No - PPD History Previous Implant?: Yes Documented Results: Positive w/proof Implanted On Prior [facility] Admission?: Yes Date: 09/21/16 Results: 0 mm PPD to be Administered?: No - Reproductive History Patient is a Female of Child Bearing Age (11 -55 yrs old): No - Smoking Cessation Smoking history: Current every day smoker Have you smoked in the past 12 months: Yes Aproximately how many cigarettes per day: 20 Hx Chewing Tobacco Use: No Initiated information on smoking cessation: Yes 'Breaking Loose' booklet given: 12/23/16 - Substance & Tx. History Hx Alcohol Use: Yes Hx Substance Use: Yes Substance Use Type: Alcohol, Cocaine, Heroin, Tranquilizers Hx Substance Use Treatment: Yes (last detox [facility] 09/2016) - Substances Abused Heroin Route: Injection Frequency: Daily Amount used: 10 bags Age of first use: 30 Date of Last Use: 12/22/16 Alcohol Route: Oral Frequency: Daily Amount used: 3-4 12 oz beers Age of first use: 16 Date of Last Use: 12/22/16 Alprazolam (Xanax) Route: Oral Frequency: Daily Amount used: 2-4mg Age of first use: 30 Date of Last Use: 12/22/16 Cocaine Route: Injection Frequency: Daily Amount used: $10 Age of first use: 16 Date of Last Use: 12/22/16 Family Disease History - Family Disease History Family History: Denies Admission Physical Exam [facility] - Vital Signs Vital Signs: Vital Signs - 24 hr 12/23/16 10:16 Temperature 96.9 F L Pulse Rate 60 Respiratory 18 Rate Blood Pressure 130/82 - Physical General Appearance: Yes: Appropriately Dressed, Moderate Distress, Tremorous, Irritable, Sweating, Anxious HEENTM: Yes: Normal Voice, Nasal Congestion Respiratory: Yes: Lungs Clear, Normal Breath Sounds, No Respiratory Distress Neck: Yes: No masses,lesions,Nodules Breast: Yes: Within Normal Limits Cardiology: Yes: Regular Rhythm, Regular Rate, S1, S2 Abdominal: Yes: Normal Bowel Sounds Genitourinary: Yes: Within Normal Limits Back: Yes: Normal Inspection Musculoskeletal: Yes: Gait Steady, Back pain Extremities: Yes: Normal Inspection, Non-Tender, Tremors Neurological: Yes: Fully Oriented, Alert, Normal Response Integumentary: Yes: Normal Color, Diaphoresis, Track Bowling Lymphatic: Yes: Within Normal Limits - Diagnostic (1) Opioid dependence with withdrawal Current Visit: Yes Status: Chronic (2) Sedative, hypnotic or anxiolytic dependence with withdrawal, uncomplicated Current Visit: Yes Status: Chronic (3) Alcohol dependence with uncomplicated withdrawal Current Visit: Yes Status: Chronic (4) Nicotine dependence Current Visit: Yes Status: Chronic Qualifiers: Nicotine product type: cigarettes Substance use status: uncomplicated Qualified Code(s): F17.210 - Nicotine dependence, cigarettes, uncomplicated Cleared for Admission [facility] - Detox or Rehab [facility] Level of Care: Medically Managed Detox Regimen/Protocol: Methadone/Valium [facility] Breath Alcohol Content Breath Alcohol Content: 0 Urine Drug Screen - Results Drug Screen Negative: No Urine Drug Screen Results: KIMMY-Cocaine, OPI-Opiates, BZO-Benzodiazepines, MTD- Methadone
[2016-12-23] MEDS ORDERED: LOPERAMIDE HCL 2 MG CAPSULE PO PRN (12:17)
[2016-12-23] MEDS ORDERED: ACETAMINOPHEN 325 MG TABLET (FP) PO PRN (12:17)
[2016-12-23] MEDS ORDERED: P-EPHED 60MG/TRIPROLIDI 2.5MG TABLET PO PRN (12:17)
[2016-12-23] MEDS ORDERED: MENTHOL/PHENOL 1 EACH UD MM PRN (12:17)
[2016-12-23] MEDS ORDERED: MAGNESIUM HYDROX 2400MG/30ML ORAL SUSPENSION 30 ML CUP PO PRN (12:17)
[2016-12-23] MEDS ORDERED: guaiFENesin/D-METHORPHAN HB 10 ML UNIT-DOSE CUPS PO PRN (12:17)
[2016-12-23] MEDS ORDERED: MAG HYDROX/AL HYDROX/SIMETH 30 ML UNIT-DOSE CUP PO PRN (12:17)
[2016-12-23] MEDS ORDERED: diphenhydrAMINE HCL 50 MG CAPSULE PO PRN (12:17)
[2016-12-23] MEDS ORDERED: hydrOXYzine PAMOATE 50 MG CAPSULE (FP) PO PRN (12:17)
[2016-12-23] MEDS ORDERED: IBUPROFEN 400 MG TABLET (FP) PO PRN (12:17)
[2016-12-23] MEDS ORDERED: MAGNESIUM CITRATE 300 ML BOTTLE PO PRN (12:17)
[2016-12-23] MEDS ORDERED: diazePAM 5 MG TABLET PO ONE (12:22)
[2016-12-23] MEDS ORDERED: METHADONE HCL 10 MG TABLET (FOR DETOX USE ONLY) PO ONE ×2 (12:23→23:00)
--- NOTE | 2016-12-23 14:08 | CONSULT ---
[facility] Psychiatric Consult - Data Date of interview: 12/23/16 Admission source: [facility] Identifying data: Readmission to [facility] for this 51 y/o male seeking detox treatment for alcohol,xanax and heroin dependence.Patient is ,a father of one,homeles,unemployed and deprived of any means of support. Substance Abuse History: - Smoking Cessation. Smoking history: Current every day smoker. Have you smoked in the past 12 months: Yes. Aproximately how many cigarettes per day: 20. Hx Chewing Tobacco Use: No. Initiated information on smoking cessation: Yes. 'Breaking Loose' booklet given: 12/23/16. - Substance & Tx. History. Hx Alcohol Use: Yes. Hx Substance Use: Yes. Substance Use Type : Alcohol, Cocaine, Heroin, Tranquilizers. Hx Substance Use Treatment: Yes ( last detox [facility] 09/2016). - Substances Abused. Heroin. Route: Injection. Frequency: Daily. Amount used: 10 bags. Age of first use: 30. Date of Last Use: 12/22/16. Alcohol. Route: Oral. Frequency: Daily. Amount used: 3-4 12 oz beers. Age of first use: 16. Date of Last Use: . Alprazolam (Xanax). Route: Oral. Frequency: Daily. Amount used: 2- 4mg. Age of first use: 30. Date of Last Use: 12/22/16. Cocaine. Route: Injection. Frequency: Daily. Amount used: $10. Age of first use: 16. Date of Last Use: 12/22/16. Confirmed by patient. Medical History: Patient denies. Psychiatric History: Patient denies. Physical/Sexual Abuse/Trauma History: Patient denies. Additional Comment: Urine Drug Screen Results: KIMMY-Cocaine, OPI-Opiates, BZO- Benzodiazepines, MTD-Methadone.Noted. Mental Status Exam - Mental Status Exam Alert and Oriented to: Time, Place, Person Cognitive Function: Good Patient Appearance: Well Groomed Mood: Nervous, Anxious Affect: Mood Congruent Patient Behavior: Fatigued, Appropriate, Cooperative Speech Pattern: Clear Voice Loudness: Normal Thought Process: Goal Oriented Thought Disorder: Not Present Hallucinations: Denies Suicidal Ideation: Denies Homicidal Ideation: Denies Insight/Judgement: Poor Sleep: Poorly, Difficulty falling asleep Appetite: Good Muscle strength/Tone: Normal Gait/Station: Normal Psychiatric Findings - Problem List ([place] 1, 2,3) (1) Alcohol dependence with uncomplicated withdrawal Current Visit: Yes Status: Acute (2) Opioid dependence with withdrawal Current Visit: Yes Status: Acute (3) Sedative, hypnotic or anxiolytic dependence with withdrawal, uncomplicated Current Visit: Yes Status: Acute (4) Nicotine dependence Current Visit: Yes Status: Acute Qualifiers: Nicotine product type: cigarettes Substance use status: uncomplicated Qualified Code(s): F17.210 - Nicotine dependence, cigarettes, uncomplicated (5) Insomnia Current Visit: Yes Status: Acute - Initial Treatment Plan Initial Treatment Plan: Psychoeducation.Detoxification in progress.Ambien 10 mg po hs.Patient is made aware of risk of parasomnias.He agrees with careplan.Observation.
[2016-12-23 14:48] LABS: HIV 1 & 2 AB NEGATIVE; HIV 1 AGp24 NEGATIVE
[2016-12-23] MEDS: diazePAM 5 MG TABLET PO SCH ×2 (15:16→22:20)
[2016-12-23 17:44] LABS: URINE APPEARANCE CLEAR; URINE BILIRUBIN NEGATIVE (NEGATIVE); URINE BLOOD NEGATIVE (NEGATIVE); URINE COLOR AMBER; URINE GLUCOSE (UA) NEGATIVE (NEGATIVE); URINE KETONE TRACE (NEGATIVE); URINE LEUK ESTERASE NEGATIVE (NEGATIVE); URINE NITRITE NEGATIVE (NEGATIVE); URINE PROTEIN NEGATIVE (NEGATIVE); URINE UROBILINOGEN NEGATIVE E.U./dl (0.2-1.0)
[2016-12-23] MEDS: diazePAM 5 MG TABLET PO PRN (18:07)
[2016-12-23] MEDS: THIAMINE HCL 100 MG TABLET (FP) PO SCH (22:20)
[2016-12-23] MEDS: ZOLPIDEM TARTRATE 10 MG TABLET (PARK CARE ONLY) PO PRN (22:20)
[2016-12-24] MEDS: diazePAM 5 MG TABLET PO SCH ×3 (05:35→22:23)
[2016-12-24] MEDS: diazePAM 5 MG TABLET PO PRN ×2 (09:29→17:01)
[2016-12-24 09:46] LABS: MCHC 33.2 g/dl (32.0-35.9); MEAN CELL VOLUME 90.3 fl (80-96); PLATELET COUNT 156 K/MM3 (134-434); RDW 13.8 % (11.9-15.9); WHITE BLOOD COUNT 5.3 K/mm3 (4.0-10.0)
[2016-12-24] MEDS ORDERED: NICOTINE 7 MG/24 HOURS TOPICAL PATCH TD SCH (10:00)
[2016-12-24] MEDS ORDERED: NICOTINE 21 MG/24 HOURS TOPICAL PATCH TD SCH (10:00)
[2016-12-24] MEDS ORDERED: METHADONE HCL 10 MG TABLET (FOR DETOX USE ONLY) PO SCH (10:00)
[2016-12-24] MEDS: PRENATAL VITAMINS W/ FOLIC ACID TABLET (FP) PO SCH (10:28)
--- NOTE | 2016-12-24 12:42 | EKG ---
Test Reason : Blood Pressure : / mmHG Vent. Rate : 048 BPM Atrial Rate : 048 BPM P-R Int : 132 ms QRS Dur : 100 ms QT Int : 460 ms P-R-T Axes : 053 061 042 degrees QTc Int : 410 ms SINUS BRADYCARDIA OTHERWISE NORMAL ECG WHEN COMPARED WITH ECG OF 10-NOV-2016 18:39, NO SIGNIFICANT CHANGE WAS FOUND Confirmed by DAGOBERTO HANLEY MD ([id number]) on 12/24/2016 12:41:42 PM Referred By: Joshua Thao Confirmed By:DAGOBERTO HANLEY MD
[2016-12-24 13:11] LABS: ALBUMIN 4.1 g/dl (3.4-5.0); ALK PHOS 65 U/L (45-117); ANION GAP 7 (8-16); BILIRUBIN,TOTAL 0.6 mg/dL (0.2-1.0); CALCIUM 9.2 mg/dL (8.5-10.1); CO2 33 mmol/L (21-32); GLUCOSE,RANDOM 86 mg/dL (74-106); SGOT/AST 197 U/L (15-37); SGPT/ALT 134 U/L (12-78); TOT PROT 7.4 g/dl (6.4-8.2)
--- NOTE | 2016-12-24 14:34 | PN ---
[facility] CIWA - CIWA Score Nausea/Vomitin Muscle Tremors: 2 Anxiety: 3 Agitation: 2 Paroxysmal Sweats: 3 Orientation: 2-Disoriented Date<2 days Tacttile Disturbances: 0-None Auditory Disturbances: 2-Mild Harshness/Frighten Visual Disturbances: 2-Mild Sensitivity Headache: 0-None Present CIWA-Ar Total Score: 19 [facility] COWS - Scale Resting Pulse: 0= [place] 80 or Below Sweatin= Chills/Flushing Restless Observation: 1= Difficult to Sit Still Pupil Size: 0= Normal to Room Light Bone or Joint Aches: 2= Severe Diffuse Aches Runny Nose/ Eye Tearin= Runny Nose/Eyes GI Upset > 30mins: 2= Nausea/Diarrhea Tremor Observation of Outstretched Hands: 2= Slight Tremor Visible Yawning Observation: 1= 1-2x During Session Anxiety or Irritability: 1=Feels Anxious/Irritable Goose Flesh Skin: 3=Piloerection COWS Score: 15 [facility] Progress Note (SOAP) Subjective: Nausea, Interrupted sleep, Body Aches, Stomach cramping ,Sweating. Objective: PT. A & O X 2 (DISORIENTED ABOUT DAY / DATE). NO ACUTE DISTRESS. 12/24/16 14:31 Vital Signs Temperature 99.0 F 12/24/16 13:12 Pulse Rate 48 L 12/24/16 13:12 Respiratory Rate 18 12/24/16 13:12 Blood Pressure 132/71 12/24/16 13:12 O2 Sat by Pulse Oximetry (%) Laboratory Tests 12/23/16 12/23/16 12/24/16 10:30 14:00 06:00 WBC 5.3 RBC 4.62 Hgb 13.9 Hct 41.7 MCV 90.3 MCHC 33.2 RDW 13.8 Plt Count 156 MPV 9.0 D Sodium Potassium Chloride Carbon Dioxide Anion Gap BUN Creatinine Creat Clearance w eGFR Random Glucose Calcium Total Bilirubin AST ALT Alkaline Phosphatase Total Protein Albumin Urine Color [place] Urine Appearance Clear Urine pH 5.0 Ur Specific [place] >= 1.030 H Urine Protein Negative Urine Glucose (UA) Negative Urine Ketones Trace H Urine Blood Negative Urine Nitrite Negative Urine Bilirubin Negative Urine Urobilinogen Negative Ur Leukocyte Esterase Negative HIV 1&2 Antibody Screen Negative HIV P24 Antigen Negative 12/24/16 06:00 WBC RBC Hgb Hct MCV MCHC RDW Plt Count MPV Sodium 140 Potassium 4.7 D Chloride 100 Carbon Dioxide 33 H Anion Gap 7 L BUN 15 Creatinine 1.0 Creat Clearance w eGFR > 60 Random Glucose 86 D Calcium 9.2 Total Bilirubin 0.6 D AST 197 H D ALT 134 H D Alkaline Phosphatase 65 Total Protein 7.4 Albumin 4.1 D Urine Color Urine Appearance Urine pH Ur Specific [place] Urine Protein Urine Glucose (UA) Urine Ketones Urine Blood Urine Nitrite Urine Bilirubin Urine Urobilinogen Ur Leukocyte Esterase HIV 1&2 Antibody Screen HIV P24 Antigen LABS NOTED. Assessment: 12/24/16 14:33 WITHDRAWAL SYMPTOMS. Plan: CONTINUE DETOX. REPEAT AST AND ALT ON 12/26/2016 FOR ELEVATED ADMISSION LEVELS.
[2016-12-24] MEDS: THIAMINE HCL 100 MG TABLET (FP) PO SCH (22:22)
[2016-12-24] MEDS: ZOLPIDEM TARTRATE 10 MG TABLET (PARK CARE ONLY) PO PRN (22:23)
[2016-12-25] MEDS: diazePAM 5 MG TABLET PO PRN (05:27)
[2016-12-25 09:44] VITALS: BP 136/83; PULSE 98; TEMP 97.5
[2016-12-25] MEDS ORDERED: METHADONE HCL 5 MG TABLET (FOR DETOX USE ONLY) PO SCH (10:00)
[2016-12-25] MEDS ORDERED: diazePAM 5 MG TABLET PO SCH (10:00)
[2016-12-25] MEDS: PRENATAL VITAMINS W/ FOLIC ACID TABLET (FP) PO SCH (10:13)
--- NOTE | 2016-12-25 11:03 | DS ---
[facility] Detox Discharge Summary Admission Date: 12/23/16 Discharge Date: 12/25/16 - History Present History: Alcohol Dependence, Opioid Dependence, Sedative Dependence Additional Comments: ADVISED PATIENT TO FOLLOW-UP WITH [facility] FOR GENERAL MEDICAL ASSESSMENT. Pertinent Past History: Hepatitis C. - Physical Exam Results Vital Signs: Vital Signs Temperature 97.5 F L 12/25/16 09:44 Pulse Rate 98 H 12/25/16 09:44 Respiratory Rate 18 12/25/16 09:44 Blood Pressure 136/83 12/25/16 09:44 O2 Sat by Pulse Oximetry (%) Pertinent Admission Physical Exam Findings: WITHDRAWAL SYMPTOMS. Laboratory Tests 12/23/16 12/23/16 12/24/16 10:30 14:00 06:00 WBC 5.3 RBC 4.62 Hgb 13.9 Hct 41.7 MCV 90.3 MCHC 33.2 RDW 13.8 Plt Count 156 MPV 9.0 D Sodium Potassium Chloride Carbon Dioxide Anion Gap BUN Creatinine Creat Clearance w eGFR Random Glucose Calcium Total Bilirubin AST ALT Alkaline Phosphatase Total Protein Albumin Urine Color [place] Urine Appearance Clear Urine pH 5.0 Ur Specific [place] >= 1.030 H Urine Protein Negative Urine Glucose (UA) Negative Urine Ketones Trace H Urine Blood Negative Urine Nitrite Negative Urine Bilirubin Negative Urine Urobilinogen Negative Ur Leukocyte Esterase Negative RPR Titer HIV 1&2 Antibody Screen Negative HIV P24 Antigen Negative 12/24/16 12/24/16 06:00 06:00 WBC RBC Hgb Hct MCV MCHC RDW Plt Count MPV Sodium 140 Potassium 4.7 D Chloride 100 Carbon Dioxide 33 H Anion Gap 7 L BUN 15 Creatinine 1.0 Creat Clearance w eGFR > 60 Random Glucose 86 D Calcium 9.2 Total Bilirubin 0.6 D AST 197 H D ALT 134 H D Alkaline Phosphatase 65 Total Protein 7.4 Albumin 4.1 D Urine Color Urine Appearance Urine pH Ur Specific [place] Urine Protein Urine Glucose (UA) Urine Ketones Urine Blood Urine Nitrite Urine Bilirubin Urine Urobilinogen Ur Leukocyte Esterase RPR Titer Nonreactive HIV 1&2 Antibody Screen HIV P24 Antigen LABS NOTED. - Treatment Hospital Course: Detoxed Safely - Medication Discharge Medications: Ambulatory Orders NK [No Known Home Medication] 09/19/16 - Diagnosis (1) Alcohol dependence with uncomplicated withdrawal Current Visit: Yes Status: Acute (2) Insomnia Current Visit: Yes Status: Acute Qualifiers: Insomnia type: unspecified Qualified Code(s): G47.00 - Insomnia, unspecified (3) Nicotine dependence Current Visit: Yes Status: Chronic Qualifiers: Nicotine product type: cigarettes Substance use status: uncomplicated Qualified Code(s): F17.210 - Nicotine dependence, cigarettes, uncomplicated (4) Opioid dependence with withdrawal Current Visit: Yes Status: Acute (5) Sedative, hypnotic or anxiolytic dependence with withdrawal, uncomplicated Current Visit: Yes Status: Acute - AMA Did Patient Leave Against Medical Advice: Yes (PATIENT DID NOT WISH TO STAY TO COMPLETE DETOX REGIMEN.)
[2016-12-27] MEDS ORDERED: METHADONE HCL 10 MG TABLET (FOR DETOX USE ONLY) PO SCH (10:00)
[2016-12-27] MEDS ORDERED: diazePAM 5 MG TABLET PO SCH (10:00)
[2016-12-28] MEDS ORDERED: METHADONE HCL 5 MG TABLET (FOR DETOX USE ONLY) PO SCH (06:00)
== END 2016-12-25 11:15 | disposition left against medical advice (07) | DRG 770 ==
LOC: YASAS 08:38 → Y3N 11:54
PROVIDERS: ADMIT Internal Medicine; ATTEND Internal Medicine
PROC: HZ2ZZZZ Detoxification Services for Substance Abuse Treatment (ICD-10-PCS; principal; 2016-12-23)
DX: F11.23 Opioid dependence with withdrawal (principal); F13.230 Sedative, hypnotic or anxiolytic dependence with withdrawal, uncomplicated; F10.230 Alcohol dependence with withdrawal, uncomplicated; F17.210 Nicotine dependence, cigarettes, uncomplicated; G47.00 Insomnia, unspecified; B18.2 Chronic viral hepatitis C
CPT/HCPCS: 36415; 80053; 81003; 85027; 86593; 87389; 93005; 93010